=== PATIENT | male | born 1980 | race Caucasian/White ===

== ENCOUNTER 2023-02-18 18:42 | Emergency (ER) | payer BC, OTHER ==
[2023-02-18 18:52] VITALS: BP 155/89; PULSE 89; RESP 18; TEMP 98.3; BMI 38.3
== END 2023-02-18 22:55 | disposition home or self-care (01) ==
LOC: JERFT 18:42
DX: S02.2XXA Fracture of nasal bones, initial encounter for closed fracture (principal); R51.9 Headache, unspecified; R42 Dizziness and giddiness; W51.XXXA Accidental striking against or bumped into by another person, initial encounter
CPT/HCPCS: 70486-TC; 99285-25

== ENCOUNTER 2023-02-20 03:26 | Emergency (ER) | payer BC, OTHER ==
[2023-02-20 03:36] VITALS: BP 139/92; PULSE 81; RESP 18; TEMP 97.4; BMI 38.3
[2023-02-20] MEDS ORDERED: ONDANSETRON *ODT* 4 MG TABLET SL ONE (06:13)
[2023-02-20] MEDS ORDERED: ONDANSETRON 4 MG TABLET PO ONE (06:44)
== END 2023-02-20 06:46 | disposition home or self-care (01) ==
LOC: JER 03:26
DX: S02.2XXA Fracture of nasal bones, initial encounter for closed fracture (principal); S06.0X0A Concussion without loss of consciousness, initial encounter; X58.XXXA Exposure to other specified factors, initial encounter
CPT/HCPCS: 70450-TC; 72125-TC; 99284-25; Q0162